=== PATIENT | female | born 1945 | race Two or more races ===

== ENCOUNTER → 2016-08-03 | Outpatient (REF) | payer OTHER | LOC: M LAB REF 13:05 | DX: L56.8 Other specified acute skin changes due to ultraviolet radiation (principal) ==

== ENCOUNTER → 2020-09-28 | Outpatient (CLI) | payer MEDICARE ==
--- NOTE | 2020-09-30 02:20 | ECWPNPC ---
PATIENT NAME: PIERRE CANTU : 1945 GENDER: FEMALE VISIT DATE: 09/28/2020 DISCHARGE DATE: 09/28/20 0859 VISIT LOCKED DATE TIME: PHYSICIAN: LALITA TELLEZ RESOURCE: LALITA TELLEZ REASON FOR APPOINTMENT 1. LOW BACK / SCIATICA HISTORY OF PRESENT ILLNESS GENERAL: 75-YEAR-OLD [facility]. PATIENT IS CURRENTLY PRESCRIBES 59 G OF OXYCODONE NEEDED FOR HIP PAIN. SHE FEELS HER MEDICATIONS ARE HELPFUL AND DENIES MED SIDE EFFECTS AT THIS TIME. FALL RISK SCREENING: SCREENING :NO FALLS REPORTED IN THE LAST YEAR PAIN SCREENING: PATIENT HAS A COMPLAINT OF ACUTE OR CHRONIC PAIN :YES LOCATION OF PAIN:KNEES INTENSITY OF PAIN (SCALE OF 1 TO 10):0 NURSING NOTE: - - -. PAIN CENTER INTAKE QUESTIONS: DO YOU HAVE A HISTORY OF MRSA? :NO DO YOU TAKE A BLOOD THINNERS? :NO DO YOU HAVE ANY BLEEDING DISORDERS? :NO ANY NEW NUMBNESS OR WEAKNESS IN YOUR LEGS OR ARMS? :YES LEGS ANY PACEMAKER,DEFIBRILLATOR, OR DORSAL COLUMN STIMULATOR? :NO DO YOU HAVE ANY RASHES OR OPEN SORES? :NO ARE YOU ALLERGIC TO IV DYE? :NO ARE YOU DIABETIC? :NO ANY NEW PROBLEMS WITH YOUR MEDICATIONS? :NO HAVE YOU RECEIVED A VACCINE IN THE PAST 30 DAYS? :YES IF SO WHAT VACCINE AND WHEN? SECOND COVID VACCINE 09/13/20 DO YOU PLAN TO RECEIVE A VACCINE IN THE NEXT 21 DAYS? :NO DO YOU NEED ANY PRESCRIPTION? :NO DO YOU TAKE ANY IMMUNOSUPPRESSIVE MEDICATIONS? :NO DO YOU HAVE ANY KIDNEY OR LIVER DISEASE? :NO IS THERE A CHANCE YOU COULD BE ? :NO ARE YOU BREAST FEEDING? :NO CURRENT MEDICATIONS TAKING ASPIR-81 TAKING VITAMIN D3 50 MCG (2000 UT) CAPSULE 1 CAPSULE ORALLY ONCE A DAY TAKING CALCIUM + D 600-200 MG-UNIT TABLET 1 TABLET ORALLY TWICE A DAY TAKING REFRESH 1.4-0.6 % SOLUTION DIRECTED OPHTHALMIC TAKING SALINE NASAL SPRAY 0.65 % SOLUTION 2 SPRAYS IN EACH NOSTRIL NEEDED NASALLY EVERY 2 HRS TAKING PRAVASTATIN SODIUM 20 MG TABLET 1 TABLET ORALLY ONCE A DAY TAKING FLONASE 50 MCG/DOSE INHALER 1 SPRAY IN EACH NOSTRIL NASALLY ONCE A DAY TAKING CICLOPIROX 8 % SOLUTION 1 APPLICATION EXTERNALLY ONCE A DAY TAKING LORAZEPAM 0.5 MG TABLET 1 TABLET AT BEDTIME NEEDED ORALLY ONCE A DAY TAKING LEVOTHYROXINE SODIUM 50 MCG TABLET 1 TABLET IN THE MORNING ON AN EMPTY STOMACH ORALLY ONCE A DAY TAKING HYDROXYCHLOROQUINE 200 MG TAKING HYDROCHLOROTHIAZIDE 12.5 MG CAPSULE 1 CAPSULE IN THE MORNING ORALLY ONCE A DAY TAKING OXYCODONE HCL 5 MG TABLET 1 TABLET NEEDED ORALLY EVERY 6 HRS TAKING OMEPRAZOLE 20 MG CAPSULE DELAYED RELEASE 1 CAPSULE 30 MINUTES BEFORE MORNING MEAL ORALLY ONCE A DAY TAKING GUAIFENESIN 100 MG/5ML SYRUP 10 ML NEEDED ORALLY EVERY 4 HRS MEDICATION LIST REVIEWED AND RECONCILED WITH THE PATIENT PAST MEDICAL HISTORY HYPOTHYROIDISM THYROID NODULE CERVICAL LYMPHADENOPATHY DEPRESSION WITH ANXIETY VITAMIN D DEFICIENCY OSTEOPENIA CHRONIC LBP AORTIC ECTASIA RENAL CYST HAMMER TOE ALLERGIC RHINITIS DRY MOUTH LIPOMA CREST SYNDROME SINUSITIS CHRONIC GASTRITIS SPRAIN AND STRAIN OF SACROILIAC JOINT ALLERGIES SEASONAL: SNEEZING SURGICAL HISTORY CHOLECYSTECTOMY HYSTERECTOMY LEFT HIP REPLACED RIGHT HIP REPLACED LEFT KNEE REPAIR HYSTERECTOMY SOCIAL HISTORY GENERAL: LATEX QUESTIONNAIRE LATEX ALLERGY : HAVE YOU EVER DEVELOPED ANY TYPE OF REACTION AFTER HANDLING LATEX PRODUCTS SUCH RUBBER GLOVES, CONDOMS, DIAPHRAGMS, BALLOONS, SOCKS, OR UNDERWEAR?NO LATEX ALLERGY : HAVE YOU EVER DEVELOPED ANY TYPE OF REACTION DURING OR AFTER DENTAL APPOINTMENT, VAGINAL/RECTAL EXAMINATION, SURGICAL PROCEDURE, OR ANY OTHER EXPOSURE?NO LATEX RISK : HAVE YOU EVER HAD ANY DIFFICULTY BREATHING OR HIVES AFTER EATING OR HANDLING ANY FRUITS, OR VEGETABLES; SUCH KIWI, BANANAS, STONE FRUITS, OR CHESTNUTSNO LATEX RISK : DO YOU HAVE A PREVIOUS PERSONAL HISTORY OF MORE THAN NINE SURGERIES, SPINA BIFIDA, OR REPEATED CATHERIZATIONS? NO LATEX RISK : ARE YOU FREQUENTLY EXPOSED TO LATEX PRODUCTS IN YOUR OCCUPATION?YES DATE ASKED : 09/28/2020 RECREATIONAL DRUG USE DRUG USE?NO LEARNING BARRIERS / SPECIAL NEEDS BARRIERS TO LEARNING?NO HEARING IMPAIRED?NO VISION IMPAIRED?NO COGNITIVELY IMPAIRED?NO READINESS TO LEARN?YES LEARNING PREFERENCES?NO LEARNING CAPABILITIES PRESENT?YES EMOTIONAL BARRIERS?NO DOMESTIC VIOLENCE DO YOU FEEL SAFE IN YOUR ENVIRONMENT?YES HOSPITALIZATION/MAJOR DIAGNOSTIC PROCEDURE SURGERY RELATED REVIEW OF SYSTEMS CONSTITUTIONAL: ANY RECENT FEVER NO . CHILLS NO . WEIGHT CHANGE OF UNKNOWN REASONS NO . GASTROENTEROLOGY: NEW UNEXPLAINABLE CHANGES IN BOWEL CONTROL NO . CONSTIPATION NO . GENITOURINARY: ANY NEW CHANGE IN BLADDER CONTROL? NO . NEUROLOGY: NEW ONSET DIZZINESS OR NEUROLOGICAL CHANGES NOT MENTIONED NO . NEW NUMBNESS OR PAIN PATTERNS NOT MENTIONED AND PERTINENT TO TODAY'S VISIT NO . CARDIOLOGY: NEW CHEST PRESSURE NO . PATIENT DENIES NO . RESPIRATORY: UNEXPLAINABLE COUGH NO . NEW SHORTNESS OF BREATH NO . EXAMINATION GENERAL EXAMINATION: GENERALNO ACUTE DISTRESS, WELL NOURISHED AND HYDRATED. PSYCHAPPROPRIATE MOOD AND AFFECT . ASSESSMENTS HIP PAIN - M25.559 (PRIMARY) TREATMENT HIP PAIN NOTES: 75-YEAR-OLD FEMALE IN FOR CONSULT REGARDING CURRENT MEDICATION REGIMEN. PATIENT FEELS HER MEDICATIONS ARE BENEFICIAL AND ADMITS TO TAKING APPROXIMATELY ONE TABLET DAILY NEEDED FOR PAIN. MEDICATION IS WORKING WELL FOR PATIENT AND HER DOSE IS RELATIVELY LOW RECOMMENDED THIS TIME MAINTAINING CURRENT MEDICATION REGIMEN. PATIENT HAS EXPRESSED UNDERSTANDING OF AND WAS IN AGREEMENT WITH TREATMENT PLAN. GIVEN TIME TO ASK QUESTIONS AND EXPRESS CONCERNS. OTHERS NOTES: PAT DONE, VITAL SIGNS NOT DONE FOR TELEPHONE VISIT. Misha ALLEN GREEN CHAIN PULLER 09/28/20. DISPOSITION & COMMUNICATION ELECTRONICALLY SIGNED BY ALEJANDRO JONES ON 09/29/2020 AT 01:37 PM EST DISCLAIMER : THIS IS A VISIT SUMMARY EXTRACTED FROM THE [employer] CHART. IT IS NOT A COPY OF THE [employer] PROGRESS NOTE. JEANINE
== END ==
LOC: M PAIN 15:00 → M TMPAIN 15:00
PROVIDERS: ATTEND Family Medicine
DX: M25.559 Pain in unspecified hip (principal); E03.9 Hypothyroidism, unspecified; E04.1 Nontoxic single thyroid nodule; F32.9 Major depressive disorder, single episode, unspecified; F41.9 Anxiety disorder, unspecified; J30.2 Other seasonal allergic rhinitis; E55.9 Vitamin D deficiency, unspecified; Z79.891 Long term (current) use of opiate analgesic; Z96.643 Presence of artificial hip joint, bilateral